=== PATIENT | female | born 1940 | race Caucasian/White ===

== ENCOUNTER → 2021-08-17 | Outpatient (CLI) | payer MEDICARE ==
[~2021-08-17] MED LIST: ACID CONTROLLER20 MG PO; ALL DAY ALLERGY10 MG PO; AMITRIPTYLINE100 MG PO; BUPROPION XL150 MG PO; BUSPAR 10MG10 MG PO; CETIRIZINE HCL10 MG PO; CYMBALTA60 MG PO; FERROUS SULFAT325 M2 PO; FLONASE 0.05% N16 GM; FLOVENT DISKUS50 MCG INH; GABAPENTIN300 MG PO; HYDROCHLOROTHIA25 MG PO; LOPRESSOR 50 MG50 MG PO; NEURONTIN 300300 MG PO; NITROSTAT0.4 MG SL; NORCO 7.5-3251 EACH PO; NORVASC10 MG PO; PLAVIX 75 MG TA75 MG PO; PROTONIX40 MG PO; RAMIPRIL10 MG PO; SYNTHROID88 MCG PO; TRAZODONE HCL150 MG PO; ULTRAM50 MG PO; VITAMIN B12-FO1 EACH PO; ZOLPIDEM TARTRA10 MG PO
== END ==
LOC: HEART 5 08-09 13:00
DX: I50.32 Chronic diastolic (congestive) heart failure (principal); R06.02 Shortness of breath; I27.20 Pulmonary hypertension, unspecified; I08.1 Rheumatic disorders of both mitral and tricuspid valves
CPT/HCPCS: 93306

== ENCOUNTER 2021-09-03 11:33 | Observation (INO) | payer MEDICARE ==
[~2021-09-03] VITALS: Ht 157.5 cm; Wt 78.0 kg
[~2021-09-03 11:33] MED LIST changes: -BUPROPION XL150 MG PO; -GABAPENTIN300 MG PO
[2021-09-03 12:35] LABS: HEMOGLOBIN 10.5 gm/dl (12.3-15.3); WHITE BLOOD COUNT 7.4 K/UL (4.5-11.0)
[2021-09-03] MEDS ORDERED: GABAPENTIN300 MG PO (16:22)
[2021-09-03] MEDS ORDERED: BUPROPION XL150 MG PO (16:27)
[2021-09-03] MEDS ORDERED: PROTONIX40 MG PO (17:01)
[2021-09-03] MEDS ORDERED: ZOLPIDEM TARTRA10 MG PO (17:02)
[2021-09-03] MEDS ORDERED: FUROSEMIDE20 MG PO (17:03)
[2021-09-03] MEDS ORDERED: POTASSIUM CHLO20 ME1 PO (17:04)
[2021-09-03] MEDS ORDERED: VITAMIN D350 MC3 PO (17:09)
[2021-09-03] MEDS ORDERED: FERROUS SULFAT325 MG PO (17:09)
[2021-09-03] MEDS ORDERED: MEGA BIOTIN10000 MCG PO (17:10)
[2021-09-04 06:05] LABS: HEMOGLOBIN 9.9 gm/dl (12.3-15.3); RED BLOOD COUNT 3.73 M/UL (4.00-5.10); WHITE BLOOD COUNT 6.6 K/UL (4.5-11.0)
== END 2021-09-04 15:06 | disposition home or self-care (01) ==
LOC: ER1 11:33 → CDU 15:38 → MED SURG 4 18:21
PROVIDERS: Nurse Practitioner; Physician Assistant Medical; ADMIT Internal Medicine Infectious Disease
DX: R53.1 Weakness (principal); R29.6 Repeated falls; E74.04 McArdle disease; I13.0 Hypertensive heart and chronic kidney disease with heart failure and stage 1 through stage 4 chronic kidney disease, or unspecified chronic kidney disease; E11.22 Type 2 diabetes mellitus with diabetic chronic kidney disease; N18.2 Chronic kidney disease, stage 2 (mild); I50.32 Chronic diastolic (congestive) heart failure; E78.5 Hyperlipidemia, unspecified; G25.81 Restless legs syndrome; Z20.822 Contact with and (suspected) exposure to COVID-19; Z95.1 Presence of aortocoronary bypass graft; Z95.2 Presence of prosthetic heart valve; Z88.0 Allergy status to penicillin; Z88.5 Allergy status to narcotic agent; Z88.8 Allergy status to other drugs, medicaments and biological substances; Z79.02 Long term (current) use of antithrombotics/antiplatelets; Z79.890 Hormone replacement therapy; Z79.899 Other long term (current) drug therapy
CPT/HCPCS: 0240U; 36415; 70450; 71045; 72125; 72131; 73522; 80048; 80053; 81001; 82550; 82553; 82962; 83735; 84439; 84443; 84484; 85025; 85027; 85379; 85610; 85730; 87086; 93005; 99285; G0378

== ENCOUNTER → 2021-11-29 | Outpatient (CLI) | payer MEDICARE ==
[~2021-11-29] MED LIST changes: +BUPROPION XL150 MG PO; +FERROUS SULFAT325 MG PO; +FUROSEMIDE20 MG PO; +GABAPENTIN300 MG PO; +MEGA BIOTIN10000 MCG PO; +POTASSIUM CHLO20 ME1 PO; +VITAMIN D350 MC3 PO
== END ==
LOC: EXRD 13:30
DX: I65.29 Occlusion and stenosis of unspecified carotid artery (principal); R90.89 Other abnormal findings on diagnostic imaging of central nervous system
CPT/HCPCS: 93880

== ENCOUNTER 2021-12-02 16:53 | Emergency (ER) | payer MEDICARE ==
[2021-12-02 18:19] LABS: RED BLOOD COUNT 2.81 M/UL (4.00-5.10); WHITE BLOOD COUNT 11.1 K/UL (4.5-11.0)
[2021-12-02 18:26] LABS: HEMOGLOBIN 6.3 gm/dl (12.3-15.3)
== END 2021-12-03 00:45 | disposition home or self-care (01) ==
LOC: ER1 16:53
PROVIDERS: Nurse Practitioner; Physician Assistant
DX: R06.02 Shortness of breath (principal); R07.9 Chest pain, unspecified; I11.0 Hypertensive heart disease with heart failure; I50.9 Heart failure, unspecified; E11.9 Type 2 diabetes mellitus without complications; Z86.73 Personal history of transient ischemic attack (TIA), and cerebral infarction without residual deficits; Z90.49 Acquired absence of other specified parts of digestive tract; Z88.5 Allergy status to narcotic agent; Z79.02 Long term (current) use of antithrombotics/antiplatelets
CPT/HCPCS: 71045; 80053; 81001; 82270; 82550; 82553; 83880; 84484; 85014; 85018; 85025; 85610; 86850; 86900; 86901; 86920; 93005; 99285; P9016